=== PATIENT | female | born 2000 | race Hispanic/Latino ===

== ENCOUNTER 2024-04-12 09:12 | Emergency (ER) | payer MEDICARE ==
[~2024-04-12] VITALS: Ht 165.1 cm; Wt 132.1 kg
[2024-04-12] MEDS: KETOROLAC TROMETHAMINE 30 MG/ML VIAL IV STA (10:26)
[2024-04-12 11:10] VITALS: PULSE 84; RESP 19; TEMP 97.9
[2024-04-12] MEDS ORDERED: NAPROSYN500 MG PO (11:48)
[2024-04-12 12:05] VITALS: BP 116/67; PULSE 84; RESP 19; TEMP 97.9; O2SAT 98
[2024-04-15] MEDS ORDERED: CEPHALEXIN500 MG PO (11:52)
[2024-04-15] MEDS ORDERED: ONDANSETRON ODT4 MG PO (11:53)
== END 2024-04-12 12:00 | disposition home or self-care (01) ==
LOC: FSED 09:26
DX: M94.0 Chondrocostal junction syndrome [Tietze] (principal); E66.01 Morbid (severe) obesity due to excess calories; Z68.42 Body mass index [BMI] 45.0-49.9, adult
CPT/HCPCS: 71046; 80053; 81003; 81025; 82553; 84484; 85025; 93005; 96374; 99283; J1885

== ENCOUNTER 2024-04-19 15:22 | Emergency (ER) | payer SELFPAY ==
[~2024-04-19] VITALS: Ht 165.1 cm; Wt 130.6 kg
[~2024-04-19 15:22] MED LIST: CEPHALEXIN500 MG PO; NAPROSYN500 MG PO; ONDANSETRON ODT4 MG PO
[2024-04-19 15:55] VITALS: PULSE 81; RESP 18; TEMP 98.4; O2SAT 100
[2024-04-19 16:42] LABS: BILIRUBIN,URINE NEGATIVE (NEGATIVE); CLARITY,URINE SL CLOUDY (CLEAR); COLOR,URINE YELLOW (YELLOW); GLUCOSE, URINE NEGATIVE (NEGATIVE); KETONES,URINE NEGATIVE (NEGATIVE); LEUKOCYTE ESTERASE ,URINE NEGATIVE (NEGATIVE); NITRITE,URINE NEGATIVE (NEGATIVE); PH,URINE 6 (5 - 7); PROTEIN,URINE DIPSTICK NEGATIVE (NEGATIVE); URINE UROBILINOGEN 1 mg/dL (0.2 - 1)
[2024-04-19 16:43] LABS: PREGNANCY TEST, URINE NEGATIVE (NEGATIVE)
[2024-04-19] MEDS: KETOROLAC TROMETHAMINE 30 MG/ML VIAL IV STA (16:48)
[2024-04-19 16:49] LABS: BASOPHILS % 0.4 % (0.0-1.0); EOSINOPHILS # (AUTO) 0.1 (0.0-0.4); EOSINOPHILS % 0.7 % (0.0-6.0); HEMATOCRIT 39.4 % (34.2-44.1); LYMPHOCYTES # (AUTO) 2.9 (1.0-3.2); LYMPHOCYTES % 31.5 % (18.0-39.1); MEAN CORPUSCULAR HEMOGLOBIN 25.3 pg (28-32); MEAN CORPUSCULAR HGB CONC 30.5 g/dL (31-35); MEAN CORPUSCULAR VOLUME 82.9 fL (81-99); MONOCYTES # (AUTO) 0.4 (0.2-0.8); MONOCYTES % 4.3 % (4.4-11.3); NEUTROPHILS # (AUTO) 5.2 (2.1-6.9); NEUTROPHILS % 55.6 % (38.7-80.0); PLATELET COUNT 218 x10e3/uL (140-360); RED BLOOD COUNT 4.75 x10e6/uL (3.6-5.1); RED CELL DISTRIBUTION WIDTH 14.9 % (11.7-14.4); WHITE BLOOD COUNT 9.34 x10e3/uL (4.8-10.8)
[2024-04-19 16:54] LABS: BACTERIA,URINE RARE /HPF; EPITHELIAL CELLS,URINE FEW /LPF; RBC,URINE 0-5 /HPF (0-5)
[2024-04-19 17:15] LABS: ALBUMIN 3.7 g/dL (3.5-5.0); ALBUMIN/GLOBULIN RATIO 0.9 (0.8-2.0); ANION GAP 16.9 mmol/L (8-16); BILIRUBIN,TOTAL 0.3 mg/dL (0.2-1.2); CALCIUM 9.9 mg/dL (8.4-10.2); CREATININE, SERUM 0.73 mg/dL (0.57-1.11); POTASSIUM 3.9 mmol/L (3.5-5.1); TOTAL PROTEIN 7.7 g/dL (6.5-8.1)
[2024-04-19] MEDS ORDERED: OMEPRAZOLE40 MG PO (17:48)
== END 2024-04-19 18:02 | disposition home or self-care (01) ==
LOC: ER 15:36
DX: R10.12 Left upper quadrant pain (principal); M54.50 Low back pain, unspecified
CPT/HCPCS: 36415; 74176; 80053; 81001; 81025; 85025; 99283; J1885